=== PATIENT | female | born 1990 | race American Indian/Alaskan Native ===

== ENCOUNTER 2018-08-26 11:10 | Emergency (ER) | payer OTHER ==
--- NOTE | 2018-08-26 11:52 | Emergency Department Report ---
Blank Doc - Documentation Documentation: 28 y o female presents with left sided dental pain and swelling x this am no airway compromise ACC evaluate
[2018-08-26 11:53] VITALS: BP 120/75
--- NOTE | 2018-08-26 15:52 | Emergency Department Report ---
ED ENT HPI - General Chief complaint: Dental/Oral Stated complaint: TOOTHACHE Time Seen by Provider: 08/26/18 11:51 Source: patient Mode of arrival: Ambulatory Limitations: No Limitations - History of Present Illness Initial comments: Patient is a 28-year-old [place] female who is complaining of several month of pain at tooth #17. Patient states that she is been trying to make an appointment to see a dentist however today the pain got dramatically worse. Patient states that she has swelling to the left side of her jaw. Patient has no trouble swallowing. She denies any fevers chills nausea vomiting at this time. - Related Data Previous Rx's Medication Instructions Recorded Last Taken Type Clindamycin [Clindamycin CAP] 300 mg PO Q8H #21 cap 08/26/18 Unknown Rx Ibuprofen [Ibu] 800 mg PO Q8H PRN #20 tablet 08/26/18 Unknown Rx traMADol [Ultram] 50 mg PO Q6HR PRN #12 tablet 08/26/18 Unknown Rx Allergies Allergy/AdvReac Type Severity Reaction Status Date / Time shellfish derived Allergy Itching Verified 08/26/18 11:11 ED Dental HPI - General Chief complaint: Dental/Oral Stated complaint: TOOTHACHE Time Seen by Provider: 08/26/18 11:51 Source: patient Mode of arrival: Ambulatory Limitations: No Limitations - Related Data Previous Rx's Medication Instructions Recorded Last Taken Type Clindamycin [Clindamycin CAP] 300 mg PO Q8H #21 cap 08/26/18 Unknown Rx Ibuprofen [Ibu] 800 mg PO Q8H PRN #20 tablet 08/26/18 Unknown Rx traMADol [Ultram] 50 mg PO Q6HR PRN #12 tablet 08/26/18 Unknown Rx Allergies Allergy/AdvReac Type Severity Reaction Status Date / Time shellfish derived Allergy Itching Verified 08/26/18 11:11 ED Review of Systems ROS: Stated complaint: TOOTHACHE Other details as noted in HPI Comment: All other systems reviewed and negative ED Past Medical Hx - Past Medical History Previous Medical History?: No - Surgical History Past Surgical History?: No - Social History Smoking Status: Current Every Day Smoker Substance Use Type: Marijuana - Medications Home Medications: Home Medications Medication Instructions Recorded Confirmed Last Taken Type Clindamycin [Clindamycin CAP] 300 mg PO Q8H #21 cap 08/26/18 Unknown Rx Ibuprofen [Ibu] 800 mg PO Q8H PRN #20 tablet 08/26/18 Unknown Rx traMADol [Ultram] 50 mg PO Q6HR PRN #12 tablet 08/26/18 Unknown Rx ED Physical Exam - General Limitations: No Limitations General appearance: alert, in no apparent distress - Head Head exam: Present: atraumatic, normocephalic - Eye Eye exam: Present: normal appearance - ENT ENT exam: Present: mucous membranes moist - Expanded ENT Exam Expanded Mouth exam: Present: tongue normal Teeth exam: Present: dental caries, fractured tooth # (17), dental tenderness # (17) 1 - Fractured, Dental Tenderness, Other (FACIAL CELLULITIS) - Neck Neck exam: Present: normal inspection, lymphadenopathy - Respiratory Respiratory exam: Present: normal lung sounds bilaterally. Absent: respiratory distress, wheezes, rales, rhonchi - Cardiovascular Cardiovascular Exam: Present: regular rate, normal rhythm. Absent: systolic murmur, diastolic murmur, rubs, gallop - GI/Abdominal GI/Abdominal exam: Present: soft, normal bowel sounds. Absent: distended, tenderness, guarding, rebound, rigid - Extremities Exam Extremities exam: Present: normal inspection - Back Exam Back exam: Present: normal inspection - Neurological Exam Neurological exam: Present: alert, oriented X3 - Psychiatric Psychiatric exam: Present: normal affect, normal mood - Skin Skin exam: Present: warm, dry, intact, normal color. Absent: rash ED Course Vital Signs 08/26/18 11:50 Temperature 97.6 F Pulse Rate 76 Respiratory 17 Rate Blood Pressure 120/75 O2 Sat by Pulse 98 Oximetry ED Medical Decision Making - Medical Decision Making Patient to be treated for dental abscess. Patient be referred to dentistry. Critical care attestation.: If time is entered above; I have spent that time in minutes in the direct care of this critically ill patient, excluding procedure time. ED Disposition Clinical Impression: Dental abscess Disposition: DC- TO HOME OR SELFCARE Is pt being admited?: No Does the pt Need Aspirin: No Condition: Stable Instructions: Dental Abscess (ED) Referrals: SRINIVAS NARANJO MD [Primary Care Provider] - 3-5 Days Time of Disposition: 15:51
== END 2018-08-26 16:08 | disposition home or self-care (01) ==
LOC: ED 11:10
DX: K04.7 Periapical abscess without sinus (principal); F17.200 Nicotine dependence, unspecified, uncomplicated; F12.10 Cannabis abuse, uncomplicated; Z91.013 Allergy to seafood
CPT/HCPCS: 99282

== ENCOUNTER 2018-12-14 10:42 | Emergency (ER) | payer SELFPAY ==
[2018-12-14 10:48] VITALS: BP 133/79
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
== END 2018-12-14 12:32 | disposition home or self-care (01) ==
LOC: ED 10:42
DX: S56.111A Strain of flexor muscle, fascia and tendon of right index finger at forearm level, initial encounter (principal); F17.200 Nicotine dependence, unspecified, uncomplicated; F12.10 Cannabis abuse, uncomplicated; Z91.013 Allergy to seafood; Y04.8XXA Assault by other bodily force, initial encounter; Y93.89 Activity, other specified; Y92.89 Other specified places as the place of occurrence of the external cause; Y99.8 Other external cause status